=== PATIENT | female | born 1950 | race Caucasian/White ===

== ENCOUNTER 2016-11-10 05:47 | Observation (INO) | payer OTHER ==
[2016-11-10] MEDS ORDERED: LR 1,000 ML IV SCH ×2 (06:00→10:30)
[2016-11-10] MEDS ORDERED: ceFAZolin 2 GM/DEXTROSE 100 ML IV ONE (06:00)
[2016-11-10] MEDS ORDERED: PHENAZOPYRIDINE HCL 200 MG TAB PO ONE (06:00)
[2016-11-10] MEDS ORDERED: LIDOCAINE 1% 2 ML INJ ONE (06:04)
[2016-11-10] MEDS ORDERED: LR 1,000 ML IV ONE (06:10)
[2016-11-10] MEDS ORDERED: LIDOCAINE 1% 5 ML SDV ID PRN (06:10)
[2016-11-10] MEDS ORDERED: BUPIVACAINE/EPI 0.5% 30 ML SDV ONE (06:53)
[2016-11-10] MEDS ORDERED: MIDAZOLAM 2 MG/2 ML VIAL ONE (06:59)
[2016-11-10] MEDS ORDERED: PROPOFOL/EMULSION 500 MG/50 ML BOTTLE IV ONE (07:08)
[2016-11-10] MEDS ORDERED: PROPOFOL 200 MG/20 ML VIAL ONE (07:08)
[2016-11-10] MEDS ORDERED: fentaNYL 250 MCG/5 ML INJ ONE (07:08)
[2016-11-10] MEDS ORDERED: SUCCINYLCHOLINE CHLORIDE*ANESTHESIA ONLY*200 MG/10 ML SYR IVP ONE (07:13)
[2016-11-10] MEDS ORDERED: ROCURONIUM 50 MG/5 ML VIAL ONE ×2 (07:51)
[2016-11-10] MEDS ORDERED: DEXAMETHASONE 4 MG/ML VIAL ONE (07:52)
[2016-11-10] MEDS ORDERED: ONDANSETRON 4 MG/2 ML VIAL ONE (07:52)
[2016-11-10] MEDS ORDERED: HYDROmorphONE/DILAUDID 2 MG/ML INJ ONE (08:33)
[2016-11-10] MEDS ORDERED: DIAZEPAM 5 MG TAB PO PRN (10:12)
[2016-11-10] MEDS ORDERED: ONDANSETRON 4 MG/2 ML VIAL IVP PRN (10:14)
[2016-11-10] MEDS ORDERED: HYDROCODONE/APAP 5/325 TAB PO PRN (10:14)
--- NOTE | 2016-11-10 10:19 | POSTOPPROG ---
Post Op Note Date of Operation: 11/10/16 Surgeon: Jaswant Richard Watch Repairer Apprentice: Gladis Shah Anesthesia: GET(General Endotracheal) Pre-op Diagnosis: Uterovaginal prolapse, stress incontinence Post-op Diagnosis: Same Procedure: Robotic hyst, BSO, sacrocolpopexy, TOT sling, cysto Findings: Ureters function at end of case. Inf/Abcess present in the surg proc area at time of surgery?: No EBL: Minimal Complications: None
[2016-11-10] MEDS: KETOROLAC 15 MG/1 ML SDV IVP SCH ×3 (11:40→18:22)
--- NOTE | 2016-11-10 14:29 | GOP ---
[f rep st] OPERATIVE REPORT DATE OF OPERATION: 11/10/2016 SURGEON: Jaswant Richard MD TOBACCO SAMPLER: Gladis Shah CFA. ANESTHESIA: General. PREOPERATIVE DIAGNOSIS: 1. Cystocele. 2. Uterine prolapse. 3. Rectocele. 4. Stress urinary incontinence. POSTOPERATIVE DIAGNOSIS: 1. Cystocele. 2. Uterine prolapse. 3. Rectocele. 4. Stress urinary incontinence. PROCEDURE PERFORMED: 1. Robotic-assisted laparoscopic hysterectomy, bilateral salpingo-oophorectomy. 2. Robotic-assisted laparoscopic sacrocervicopexy with mesh. 3. Repair of cystocele and rectocele. 4. Transobturator sling. 5. Cystoscopy. FINDINGS: SPECIMENS: Uterus, bilateral tubes, and ovaries. ESTIMATED BLOOD LOSS: Scant. DESCRIPTION OF PROCEDURE: The patient was taken to the operating room where she was identified. Ge neral anesthesia was administered and found to be adequate. She was placed in the lithotomy positio n and prepared and draped in normal sterile fashion. A Archer catheter was placed in her bladder. A 1 cm infraumbilical incision was made with a scalpel. The Veress needle with the CO2 gas flowing was advanced into the peritoneal cavity. The abdomen was then insufflated with carbon dioxide gas. The 12 mm trocar followed by the laparoscope were then inserted. The upper abdomen was unremarkabl e. Two lateral ports were placed on either side under direct visualization. She then was placed in Trendelenburg position and the da Ning robot docked on the left side. The instruments were then b rought into the abdominal cavity under direct visualization. The left round ligament was divided. The anterior leaf of the broad ligament was then incised to th e bifurcation of the left common iliac vessels. A window was created in the posterior leaf to skele tonize the infundibulopelvic vessels. They were then cauterized and transected. The anterior leaf of the broad ligament was then incised over the left uterine vessels and across the cervix. The miguel dder was dissected off the cervix and upper vagina. The left uterine vasculature was then cauterize d and transected. The exact same procedure was performed on the patient's right side. The uterus w as then bivalved to aid in removal through the umbilicus. The uterus and upper 3/4 of the cervix we re amputated from the lower 4th of the cervix with the hot yenni. The specimen was then placed in the right upper quadrant for later removal. The Colpo-Probe was then placed in the vagina. The bladder was further dissected off the anterior v aginal wall and down to the level of the bladder neck. The rectovaginal space was then entered and the rectum dissected off the posterior vaginal wall down to the level of the perineal body. Measure ments were then obtained and the mesh trimmed to size. The sigmoid colon was then retracted laterally. The sacral promontory was identified and the overly ing peritoneum incised. The fat pad was gently dissected off the anterior longitudinal ligament. T he peritoneal incision was then extended along the right pericolic gutter medial to the right ureter and lateral to the sigmoid colon until I met the rectovaginal opening. The cervical stump was then closed with a [id number] suture of 0 Monocryl. The mesh was sudhakar t into the abdominal cavity. Three sutures of 4-0 Hume-Mika were used to attach the distal posterior mesh to the perineal body. Two additional rows of Hume-Mika sutures were placed posteriorly. Three rows of Hume-Mika sutures were placed anteriorly to suture the mesh down to the level of the bladder neck and laterally to the paravaginal tissue. The Colpo-Probe was then removed. The sacral arm of the mesh was placed over the promontory, and the tension adjusted. I then scrubbed back into the c ase to examine the vagina. The tension was further adjusted to resolve the cystocele and rectocele without undue tension on the vagina. Two sutures of 2-0 Hume-Mika were used to attach the sacral arm of the mesh to the anterior longitudinal ligament at the level of the upper sacral 1 body below the intervertebral disk space. The excess mesh was then trimmed. The pelvis was irrigated with steril e saline and hemostasis was present. 3-0 V-Loc 90 suture was used to close the peritoneum over the entire mesh. The robot was then undocked. The specimen removed through the umbilicus. The fascia was closed with 0 Vicryl. The skin with 4-0 Monocryl and surgical adhesive. Attention was then turned to the sling portion of the procedure. A mid urethral incision was made w ith a scalpel. Tunnels were created bilaterally out to the obturator internus muscles. Skin incisi ons were made over the obturator notches. The curved trocar was placed through the left skin incisi on, redirected around the ischial pubic rami and out through the vaginal incision using a vaginal fi nger as a guide. The sling was then attached and brought out along the same course. The exact same procedure was performed on the patient's right side. Again, no evidence of vaginal injury had occu rred. The sling was then adjusted to allow a small mid urethral gap. The vaginal epithelium was cl osed with 2-0 Vicryl, the skin with 4-0 Monocryl. Cystoscopy was then performed. Both ureters had vigorous jets of urine. There was no evidence of i njury, suture nor mesh within the bladder nor urethra. No obvious pathology was seen. Vaginal pack ing was then placed. Anesthesia was reversed and the patient taken to the PACU awake and in stable condition. COMPLICATIONS: None. DISPOSITION: Patient stable to PACU. /[id number]/MODL
[2016-11-10] MEDS: ACETAMINOPHEN/CODEINE 300/30MG TAB PO PRN ×2 (16:48→19:55)
[2016-11-10] MEDS: DOCUSATE SODIUM 100 MG CAP PO SCH (19:56)
[2016-11-11] MEDS: KETOROLAC 15 MG/1 ML SDV IVP SCH ×2 (01:04→05:33)
[2016-11-11] MEDS: ACETAMINOPHEN/CODEINE 300/30MG TAB PO PRN (02:54)
[2016-11-11] MEDS ORDERED: LEVOTHYROXINE 88 MCG TAB PO SCH (06:00)
[2016-11-11 08:00] VITALS: BP 122/81; PULSE 78; RESP 18; TEMP 98.7; O2SAT 95
[2016-11-11] MEDS: DOCUSATE SODIUM 100 MG CAP PO SCH (08:00)
[2016-11-11] MEDS ORDERED: CITALOPRAM 20 MG TAB PO SCH (09:00)
[2016-11-11] MEDS ORDERED: CETIRIZINE 10 MG TAB PO SCH (09:00)
[2016-11-11] MEDS ORDERED: NON-FORMULARY NEW DRUG (Fexofenadine Hcl [Fexofenadine Hcl] 180 MG) PO SCH (09:00)
== END 2016-11-11 10:54 | disposition home or self-care (01) ==
LOC: F3N 05:47 → F3E 11:10
PROVIDERS: ADMIT Obstetrics & Gynecology; ATTEND Obstetrics & Gynecology
DX: N81.4 Uterovaginal prolapse, unspecified (principal); N39.3 Stress incontinence (female) (male)
CPT/HCPCS: 51992; 57240; 57267; 58542; C1763; C1771; J0330; J0690; J1100; J1170; J1885; J2250; J2405; J2704; J3010

== ENCOUNTER → 2017-02-03 | Outpatient (CLI) | payer OTHER | LOC: FIMAGING 11:09 | PROVIDERS: ATTEND Physician Assistant | DX: J32.0 Chronic maxillary sinusitis (principal) ==

== ENCOUNTER → 2017-02-07 | Outpatient (CLI) | payer OTHER | LOC: FIMAGING 11:40 | PROVIDERS: ATTEND Obstetrics & Gynecology | DX: Z12.31 Encounter for screening mammogram for malignant neoplasm of breast (principal); Z80.3 Family history of malignant neoplasm of breast | CPT/HCPCS: G0202 ==

== ENCOUNTER → 2017-02-15 | Outpatient (CLI) | payer OTHER | LOC: FIMAGING 14:07 | PROVIDERS: ATTEND Obstetrics & Gynecology | DX: R92.8 Other abnormal and inconclusive findings on diagnostic imaging of breast (principal) ==

== ENCOUNTER → 2017-07-07 | Outpatient (CLI) | payer OTHER | LOC: BHFA 13:15 | PROVIDERS: ATTEND Internal Medicine Cardiovascular Disease | DX: I27.20 Pulmonary hypertension, unspecified (principal) ==

== ENCOUNTER → 2017-08-04 | Outpatient (CLI) | payer OTHER | LOC: FIMAGING 12:10 → EEVIPCON 12:20 | PROVIDERS: ATTEND Obstetrics & Gynecology | DX: R92.8 Other abnormal and inconclusive findings on diagnostic imaging of breast (principal) ==